=== PATIENT | male | born 2000 | race Caucasian/White ===

== ENCOUNTER 2021-06-19 07:16 | Emergency (ER) | payer SELFPAY ==
[~2021-06-19] VITALS: Ht 160 cm; Wt 63.5 kg
[2021-06-19 07:18] VITALS: BP 136/64
--- NOTE | 2021-06-19 07:20 | NUR ---
PATIENT BIB [employer]. PT WAS TAKEN TO [employer] AND PER THEIR PARAMETERS, PT HAS TO HAVE HR UNDER 120 AND PT WAS 89 SO HE NEEDS TO BE CLEARED. PT HAS NO COMPLAINT AT THIS TIME. PT STATES HE HAD A HEART MURMUR X5 YEARS AGO.
--- NOTE | 2021-06-19 07:40 | NUR ---
Patient discharged with v/s stable. Written and verbal after care instructions given and explained. Patient verbalized understanding. Ambulatory with steady gait. All questions addressed prior to discharge. Advised to follow up with PMD.
== END 2021-06-19 07:40 ==
LOC: MED 07:16
DX: Z02.89 Encounter for other administrative examinations (principal); F10.129 Alcohol abuse with intoxication, unspecified
CPT/HCPCS: 99283